=== PATIENT | female | born 1940 | race Caucasian/White ===

== ENCOUNTER → 2019-09-21 | Emergency (ER) | payer OTHER ==
[~2019-09-21] VITALS: Ht 167.6 cm; Wt 78.0 kg
[~2019-09-21] MED LIST: AMLODIPINE BES2.5 MG; CLOPIDOGREL BIS75 MG; DICLOFENAC SODI50 MG PO; LOSARTAN POTAS100 MG; METAMUCIL1 PKT; NORFLEX100MG PO; ORPHENADRINE C100 GM; RANITIDINE HCL150 M1; VOLTAREN-XR100 MG PO
== END | disposition home or self-care (01) ==
LOC: ER 22:09
DX: M54.5 Low back pain (principal); M79.662 Pain in left lower leg; M79.661 Pain in right lower leg

== ENCOUNTER 2022-07-21 22:01 | Emergency (ER) | payer OTHER ==
[~2022-07-21] VITALS: Ht 167.6 cm; Wt 81.6 kg
[2022-07-21] MEDS ORDERED: ELIQUIS2.5 MG PO (22:10)
== END 2022-07-22 01:48 ==
LOC: ER 22:01
DX: S00.83XA Contusion of other part of head, initial encounter (principal); W18.30XA Fall on same level, unspecified, initial encounter; Y93.9 Activity, unspecified; Y92.019 Unspecified place in single-family (private) house as the place of occurrence of the external cause; I10 Essential (primary) hypertension; E16.2 Hypoglycemia, unspecified; Z20.822 Contact with and (suspected) exposure to COVID-19

== ENCOUNTER 2022-12-18 16:36 | Emergency (ER) | payer OTHER ==
[~2022-12-18] VITALS: Ht 172.7 cm; Wt 72.6 kg
[~2022-12-18 16:36] MED LIST changes: +ELIQUIS2.5 MG PO
== END 2022-12-18 18:00 | disposition home or self-care (01) ==
LOC: ER 16:36
DX: S76.311A Strain of muscle, fascia and tendon of the posterior muscle group at thigh level, right thigh, initial encounter (principal); X58.XXXA Exposure to other specified factors, initial encounter; Y93.9 Activity, unspecified; Y92.9 Unspecified place or not applicable; Y99.9 Unspecified external cause status; I10 Essential (primary) hypertension

== ENCOUNTER 2022-12-20 12:45 | Emergency (ER) | payer OTHER ==
[~2022-12-20] VITALS: Ht 167.6 cm; Wt 81.6 kg
== END 2022-12-20 17:50 | disposition home or self-care (01) ==
LOC: ER 12:45
DX: M79.651 Pain in right thigh (principal); M79.652 Pain in left thigh; I10 Essential (primary) hypertension; I87.2 Venous insufficiency (chronic) (peripheral)